=== PATIENT | female | born 1950 | race Two or more races ===

== ENCOUNTER 2024-03-13 16:53 | Emergency (ER) | payer MEDICARE, OTHER, SELFPAY ==
[2024-03-13 17:07] VITALS: BP 181/77
[2024-03-13 19:30] LABS: % Basophils 0.3 % (0-2); % Eosinophils 0.1 % (0-6); % Immature Granulocytes 0.4 % (0-0.5); % Lymphocytes 9.1 % (20.5-51.1); % Monocytes 2.1 % (1.7-9.3); Absolute Monocytes 0.2 10^3/uL (0.1-0.6); Absolute Neutrophils 9.3 10^3/uL (1.4-6.5); Hematocrit 42.6 % (37.0-47.0); Hemoglobin 14.5 g/dL (12.0-16.0); Mean Corpuscular Hgb 30.1 pg (27.0-31.0); Mean Corpuscular Volume 88.4 fL (81.0-99.0); Mean Platelet Volume 10.5 fL (7.4-10.4); Nucleated Red Blood Cells % 0 %; Platelet Count 271 10^3/uL (130-400); Red Blood Cell Count 4.82 10^6/uL (4.20-5.40); Red Cell Dist. Width 13.6 % (11.5-14.5); White Blood Cell Count 10.5 10^3/uL (4.8-10.8)
--- NOTE | 2024-03-13 19:54 | ED.GENMED ---
History of Present Illness
General
Chief Complaint: Abdominal Pain
Source: patient and family
Exam Limitations: none
Time Seen by Provider: 03/13/24 19:13
Nursing documentation reviewed up to this point in time: agreed with
History of Present Illness
History of Present Illness:
Patient presents to ED secondary to sudden onset of left mid back pain radiating to her groin, while she was at home this afternoon. Denies hematuria or urinary frequency. Denies trauma. Denies fever or chills. Patient has had multiple vomiting
episodes since onset of pain. Denies previous history of similar symptoms. Denies recent change in medications or diet. There is family history of kidney stones. However, patient herself has never experienced anything similar in the past.
Past History
Past History
ED Past Medical History: Cancer, HTN and Hypercholesterolemia
Social History
Tobacco: Non-smoker
Alcohol: None
Personal:
Living: with family
Review of Systems
Review of Systems
Allergies reviewed?: Yes
All Other Systems: ROS reviewed and negative except as documented in HPI and ROS
Constitutional: Reports no symptoms
EENT: Reports no symptoms
Respiratory: Reports no symptoms
Cardiac: Reports no symptoms
ABD/GI: Reports abdominal pain, nausea and vomiting; Denies diarrhea
: Reports flank pain; Denies dysuria, frequency, difficulty voiding or bleeding
Musculoskeletal: Reports back pain
Skin: Reports no symptoms
Neurological: Reports no symptoms
Phy Exam
Physical Exam
Physical Exam:
Physical Exam
General: mild painful distress, not acutely ill. afebrile
Head: nc/at. eomi
Neck: supple. no meningeal signs.
Heart: s1/s2 regular rate and rhythm, no murmur. equal radial pulses.
Lungs: no acute respiratory distress. clear bilaterally
Abdomen: normal bowel sounds. mild left flank/LLQ tenderness to palpation, without ecchymosis. no distention. femoral pulse equal
Neuro: alert and oriented. no focal neurological deficits
Skin: no rash
Psychiatric: well kept. interactive and cooperative
Extremities: no edema. no calf tenderness.
Course
Orders/Labs/Results
Orders:
Orders
03/13/24 16:56
Electrocardiogram (*1) Urgent
Reason for Study: Chest Pain
EKG- Treatment ONCE
03/13/24 19:19
Complete Blood Count/With Diff Urgent
Comprehensive Metabolic Panel Urgent
Lipase Urgent
Urinalysis Urgent
Date Specimen was Collected: 03/13/24
Time Specimen was Collected: 19:11
Urine Microscopic Urgent
Date Specimen was Collected: 03/13/24
Time Specimen was Collected: 19:11
03/13/24 19:23
0.9% Sodium Chloride 500 ml [Nss] 500 ml IV BOLUS
Ketorolac [Toradol] 30 mg IV NOW STA
Ondansetron Injectable [Zofran] 4 mg IV NOW STA
03/13/24 19:24
CT Abd/pel Without Iv Or Oral Urgent
Comment:
Reason For Exam: Left flank pain
03/13/24 23:09
Oxycodone/Acetaminophen [Percocet 5/325] 1 tablet PO NOW STA
Tamsulosin [Flomax] 0.4 mg PO NOW STA
Abnormal Lab Results
03/13/24
19:19
MPV 10.5 H fL
(7.4-10.4)
Absolute Neuts (auto) 9.3 H 10^3/uL
(1.4-6.5)
Absolute Lymphs (auto) 1.0 L 10^3/uL
(1.2-3.4)
Neutrophils % 88.0 H %
(42.2-75.2)
Lymphocytes % 9.1 L %
(20.5-51.1)
BUN 20 H mg/dl
(7-17)
Glucose 122 H mg/dl
(70-99)
ALT 36 H U/L
(0-35)
Urine Occult Blood Trace A
(Negative)
Ur Leukocyte Esterase Trace A
(Negative)
03/13/24 19:19
03/13/24 19:19
Vital Signs
Initial and Last Documented VS:
Initial Vital Signs
Temp Pulse Resp BP Pulse Ox
97.9 F 63 20 181/77 100
03/13/24 17:07 03/13/24 17:07 03/13/24 17:07 03/13/24 17:07 03/13/24 17:07
Last Documented Vital Signs
Temp Pulse Resp BP Pulse Ox
97.9 F 71 17 143/60 97
03/13/24 17:07 03/13/24 23:22 03/13/24 22:15 03/13/24 23:22 03/13/24 23:22
MDM/Problems Addressed
MDM/Problems Addressed:
History, exam, and CT scan consistent with renal colic. Otherwise, patient remains afebrile, hemodynamically stable, and reports improved symptoms after treatment. Patient is able to void freely without difficulties. As such, decision made to
discharge patient home with urine strainer, along with pain medication. Patient advised to follow-up with urology for an outpatient consultation. Advised return to ED with worsening symptoms, i.e. fever/inability to urinate/worsening pain.
Patient expresses understanding at time of discharge, to the care of her daughter.
*Critical Care Note
Total Time (30-74mins, 75-104mins- exclusive of procedures): Not Applicable
ED Attending Note
-
Portions of this chart may have been created with voice recognition software.� Occasional wrong word or��sound alike� substitutions may have occurred due to the inherent limitations of voice recognition software.
Discharge Plan
Departure
Patient Disposition: Home (Routine Discharge)
Date of Disposition: 03/13/24
Time of Disposition: 23:10
Patient with high blood pressure during this ER visit?: Yes
Condition: Good
Discharge Problem:
Renal colic
Instructions: Renal Colic (DC)
Prescriptions:
New
ondansetron 4 mg Tablet,Disintegrating
4 mg PO TIDPRN PRN (Reason: nausea/vomiting) Qty: 12 0RF
oxycodone-acetaminophen [Percocet] 5-325 mg Tablet
1 tab PO Q6HPRN PRN (Reason: pain) Qty: 12 0RF
tamsulosin [Flomax] 0.4 mg Capsule
0.4 mg PO DAILY Qty: 7 0RF
No Action
furosemide 40 mg Tablet
40 mg PO BID
atorvastatin 40 mg Tablet
40 mg PO DAILY
ergocalciferol (vitamin D2) 50,000 unit Tablet
PO WEEKLY
omeprazole 20 mg Capsule,Delayed Release(Dr/Ec)
20 mg PO DAILY
calcium citrate 250 mg calcium Tablet
250 mg
aspirin 81 mg Capsule
81 mg PO DAILY
ondansetron 4 mg Tablet,Disintegrating
4 mg PO BIDPRN PRN (Reason: nausea/vomiting) Qty: 10 0RF
Referrals:
Rome Godfrey MD [Active] -
Becca Lemon MD [Family Provider] -
Activity Restrictions/Additional Instructions:
As discussed, please follow-up with the referred urologist for further evaluation and treatment. Please consider return to ED with worsening symptoms, i.e. fever/inability urinate/worsening pain. Your prescriptions have been sent electronically to
[facility] pharmacy in [place].
Interventions
Interventions:
*Risk Screen - Suicide Last Done: 03/13/24 23:32
*General Assessment Last Done: 03/13/24 19:06
*Neglect/Abuse Screening Last Done: 03/13/24 23:32
ED- Fall Risk Assessment Last Done: 03/13/24 23:32
*ED COVID-19 Vaccine History Last Done: 03/13/24 23:32
*Nursing Disposition Last Done: 03/13/24 23:32
LC-Ndkgod-Qohpzylljp Assessment Last Done: 03/13/24 23:31
Discharge Date and Time
Discharge Date/Time: 03/13/24 23:35
Print Language: ICELANDIC
[2024-03-13 19:55] LABS: ALT (SGPT) 36 U/L (0-35); AST (SGOT) 36 U/L (14-36); Albumin 4.8 g/dl (3.5-5.0); Alkaline Phosphatase 93 U/L (38-126); Blood Urea Nitrogen 20 mg/dl (7-17); Calcium 10.1 mg/dl (8.4-10.2); Carbon Dioxide 28 mmol/L (22-30); Chloride 103 mmol/L (98-107); Glucose 122 mg/dl (70-99); Lipase 181 U/L (23-300); Sodium 142 mmol/L (135-145); Total Bilirubin 1.1 mg/dl (0.2-1.3); Total Protein 7.9 g/dl (6.3-8.2); eGFR > 60.00
[2024-03-13] MEDS: TORADOL 30 MG IV (19:56)
[2024-03-13] MEDS: NSS 500 IV (19:56)
[2024-03-13] MEDS: ZOFRAN 4 MG IV (19:57)
[2024-03-13 20:00] VITALS: BP 188/72
[2024-03-13 20:08] LABS: Urine Albumin Negative (Neg - Trace); Urine Bilirubin Negative (Negative); Urine Character Clear (Clear); Urine Color Yellow; Urine Glucose Negative (Negative); Urine Ketone Negative (Negative); Urine Leukocyte Trace (Negative); Urine Nitrite Negative (Negative); Urine Occult Blood Trace (Negative); Urine Urobilinogen Negative (Neg - 1+)
[2024-03-13 20:25] LABS: Urine Red Blood Cell 0-2 /HPF (0-2); Urine White Cell 0-2 /HPF (0-5)
[2024-03-13 21:00] VITALS: BP 149/56
[2024-03-13 22:00] VITALS: BP 147/63
[2024-03-13] MEDS: FLOMAX 0.4 MG PO (23:18)
[2024-03-13] MEDS: PERCOCET 5/325 1 TABLET PO (23:18)
[2024-03-13 23:22] VITALS: BP 143/60
== END 2024-03-13 23:35 | disposition home or self-care (01) ==
LOC: EMR 16:53
PROVIDERS: Student in an Organized Health Care Education/Training Program; EMERGENCY PHYSICIAN Emergency Medicine; FAMILY PHYSICIAN Family Medicine
DX: N13.2 Hydronephrosis with renal and ureteral calculous obstruction (principal); I10 Essential (primary) hypertension; E78.00 Pure hypercholesterolemia, unspecified
CPT/HCPCS: 99284; 96374; 96375; 96361; 74176; 80053; 81003; 81015; 83690; 85025; 93005

== ENCOUNTER → 2024-05-12 09:12 | Outpatient (REF) | payer MEDICARE, OTHER, SELFPAY | LOC: HWRAD 09:12 | PROVIDERS: ATTENDING PHYSICIAN Specialist; FAMILY PHYSICIAN Family Medicine | DX: N20.1 Calculus of ureter (principal); N32.2 Vesical fistula, not elsewhere classified | CPT/HCPCS: 72192 ==

== ENCOUNTER → 2024-07-21 09:25 | Outpatient (REF) | payer MEDICARE, OTHER, SELFPAY | LOC: HWRAD 09:25 | PROVIDERS: ATTENDING PHYSICIAN Specialist; FAMILY PHYSICIAN Family Medicine | DX: N39.0 Urinary tract infection, site not specified (principal); N20.1 Calculus of ureter; N32.1 Vesicointestinal fistula | CPT/HCPCS: 72192 ==

== ENCOUNTER → 2024-09-22 07:33 | Outpatient (REF) | payer MEDICARE, OTHER, SELFPAY | LOC: HWRCS 07:33 | PROVIDERS: ATTENDING PHYSICIAN Internal Medicine; FAMILY PHYSICIAN Family Medicine | DX: Z01.810 Encounter for preprocedural cardiovascular examination (principal) | CPT/HCPCS: 78452; 93017; A9500; J2785 ==

== ENCOUNTER 2024-09-26 06:30 | Day surgery (SDC) | payer MEDICARE, OTHER, SELFPAY | END 2024-09-26 11:24 | disposition home or self-care (01) | LOC: GI 06:30 | PROVIDERS: ATTENDING PHYSICIAN Surgery; FAMILY PHYSICIAN Internal Medicine | DX: K57.30 Diverticulosis of large intestine without perforation or abscess without bleeding (principal); K64.4 Residual hemorrhoidal skin tags; K62.89 Other specified diseases of anus and rectum; N32.1 Vesicointestinal fistula; D12.0 Benign neoplasm of cecum; D12.2 Benign neoplasm of ascending colon; D12.3 Benign neoplasm of transverse colon | CPT/HCPCS: 45385; 45380; 88305 ==

== ENCOUNTER → 2024-09-29 09:02 | Outpatient (REF) | payer MEDICARE, OTHER, SELFPAY | LOC: HWRCS 09:02 | PROVIDERS: ATTENDING PHYSICIAN Internal Medicine; FAMILY PHYSICIAN Family Medicine | DX: Z01.810 Encounter for preprocedural cardiovascular examination (principal) | CPT/HCPCS: 93306 ==

== ENCOUNTER → 2024-10-06 10:26 | Outpatient (REF) | payer MEDICARE, OTHER, SELFPAY | LOC: RAD 10:26 | PROVIDERS: ATTENDING PHYSICIAN Surgery | DX: N32.1 Vesicointestinal fistula (principal) | CPT/HCPCS: 74176 ==